=== PATIENT | male | born 1975 | race Caucasian/White ===

== ENCOUNTER → 2017-10-18 | Outpatient (CLI) | payer BC ==
[~2017-10-18] MED LIST: LISI-729 PO; OPTIRAY 320 IV PRN
--- NOTE | 2017-10-18 12:34 | DIAGNOSTIC IMAGING REPORT ---
CT CHEST COMBO ANGIOGRAPHY CT DOSE: 1613.98 mGy.cm CLINICAL HISTORY: Midline thoracic pain. Possible aortic dissection. No thoracic aortic aneurysm TECHNIQUE: Unenhanced images were obtained through the thorax. Chest angiography was then performed in a dynamic helical fashion during intravenous administration 1 through 21 cc of Optiray 320. MIP imaging was obtained. A dose lowering technique was utilized adhering to the principles of ALARA. COMPARISON STUDY: 06/24/2015 FINDINGS: Noncontrast images reveal no evidence of acute aortic hematoma. The thyroid is unremarkable in appearance. The heart is mildly enlarged. There are no pathologically enlarged axillary, mediastinal, or hilar lymph nodes. There are no intimal flaps to indicate acute aortic dissection. The ascending thoracic aorta is dilated measuring 49 mm. The descending thoracic aorta measures 29 mm. No pleural effusions are visualized. There is minor left basilar atelectasis. There is no focal pulmonary consolidation. There is a stable mild midthoracic vertebral body compression deformity. IMPRESSION: 1. No evidence of thoracic aortic dissection 2. Stable aneurysmal dilatation of the ascending thoracic aorta which measures 4.9 cm. 3. Stable cardiomegaly 4. No evidence of focal pulmonary consolidation 5. No evidence of pathologic adenopathy Electronically signed by: Herman Malhotra M.D. 10/18/2017 12:33 PM Dictated Date/Time: 10/18/2017 12:26 PM
== END | disposition home or self-care (01) ==
LOC: C.ULTR 10:06
PROVIDERS: ATTEND Physician Assistant
DX: M54.6 Pain in thoracic spine (principal); I71.2 Thoracic aortic aneurysm, without rupture; Z72.0 Tobacco use; Q23.1 Congenital insufficiency of aortic valve